=== PATIENT | male | born 1935 | race Two or more races ===

== ENCOUNTER 2022-01-23 15:38 | Emergency (ER) | payer OTHER ==
[~2022-01-23] VITALS: Ht 172.7 cm; Wt 68.0 kg
[2022-01-23] MEDS ORDERED: SYNTHROID (15:57)
== END 2022-01-23 19:47 | disposition home or self-care (01) ==
LOC: ER 15:38
DX: S00.83XA Contusion of other part of head, initial encounter (principal); S80.12XA Contusion of left lower leg, initial encounter; S80.11XA Contusion of right lower leg, initial encounter; S60.211A Contusion of right wrist, initial encounter; W18.39XA Other fall on same level, initial encounter; Y93.89 Activity, other specified; Y92.488 Other paved roadways as the place of occurrence of the external cause; Y99.9 Unspecified external cause status; E03.9 Hypothyroidism, unspecified

== ENCOUNTER 2022-04-07 09:50 | Outpatient (CLI) | payer OTHER ==
[~2022-04-07 09:50] MED LIST: SYNTHROID
== END 2022-04-07 09:58 | disposition home or self-care (01) ==
LOC: MAMO-SONO 09:50
PROVIDERS: ATTEND Internal Medicine Hepatology
DX: R19.00 Intra-abdominal and pelvic swelling, mass and lump, unspecified site (principal)
CPT/HCPCS: 74183; Q9965; 74182